=== PATIENT | female | born 1970 | race Hispanic/Latino ===

== ENCOUNTER 2018-01-03 14:02 | Emergency (ER) | payer OTHER ==
[2018-01-03] MEDS ORDERED: HYDROXYZINE HCL 25 MG TABLET ONE (14:40)
== END 2018-01-03 16:45 | disposition home or self-care (01) ==
LOC: EDH 14:02
DX: F41.1 Generalized anxiety disorder (principal); R20.2 Paresthesia of skin; Z88.0 Allergy status to penicillin
CPT/HCPCS: 70450; 84484; 93005